=== PATIENT | female | born 1935 | race African-American/Black ===

== ENCOUNTER 2025-06-12 15:23 | Emergency (ER) | payer MEDICARE, MEDICAID ==
[~2025-06-12] VITALS: Ht 162.6 cm; Wt 96.0 kg
[2025-06-12 15:26] VITALS: TEMP 36.7; O2SAT 99
[2025-06-12] MEDS ORDERED: ACET-2708 MT (20:12)
[2025-06-12] MEDS: ACETAMINOPHEN 325MG TABLET PO ONE (20:35)
[2025-06-12 20:42] VITALS: BP 168/51; PULSE 76; RESP 14; O2SAT 100
== END 2025-06-12 20:24 | disposition home or self-care (01) ==
LOC: ER 15:23
DX: I87.2 Venous insufficiency (chronic) (peripheral) (principal); M25.561 Pain in right knee; I10 Essential (primary) hypertension; M17.11 Unilateral primary osteoarthritis, right knee
CPT/HCPCS: 73562; 93971; 99284